=== PATIENT | male | born 1965 | race Caucasian/White ===

== ENCOUNTER 2019-10-10 12:12 | Outpatient (CLI) | payer BC, SELFPAY ==
--- NOTE | 2019-10-10 12:38 | XR_ITS ---
WS: [id number] HAND LEFT TECHNIQUE: 3 views of the left hand CLINICAL INFORMATION: FOREIGN BODY COMPARISON: None. FINDINGS: Soft tissue edema distal third digits along the volar distal phalanx. No visualized radiopaque foreig n bodies. No acute fractures. XR/XR hand LT min 3V* [id number] IMPRESSION: No visualized radiopaque foreign bodies. Soft tissue edema volar distal third d igit
== END 2019-10-10 12:13 | disposition home or self-care (01) ==
LOC: RAD 12:18
PROVIDERS: Family Provider Internal Medicine; PCP Internal Medicine; Visit Provider Internal Medicine
DX: T14.8XXA Other injury of unspecified body region, initial encounter (principal); X58.XXXA Exposure to other specified factors, initial encounter
CPT/HCPCS: 73130